=== PATIENT | female | born 1995 | race Caucasian/White ===

== ENCOUNTER 2018-06-29 11:54 | Emergency (ER) | payer MEDICAID ==
[~2018-06-29] VITALS: Ht 162.6 cm; Wt 72.8 kg
[2018-06-29 12:05] VITALS: BP 118/84
--- NOTE | 2018-06-29 12:11 | NUR ---
PT AMBULATORY TO ROOM 6 W/ C/O COUGH, CONGESTION, AND SOB X 10 DAYS. PT STATES "I HAVE A REALLY BAD COLD THAT JUST WON'T GO AWAY". PT STATES SHE CANNOT TAKE ROBITUSSIN SECONDARY TO BEING TESTED FOR ETOH. PT ALSO C/O FEVERS/CHILLS. PT DENIES GETTING FLU SHOT. PT RESTING ON GURNEY. NADN. EXPOSED TO FLU.
[2018-06-29] MEDS ORDERED: DEXAMETHASONE 4 MG TABLET ONE (12:27)
[2018-06-29] MEDS ORDERED: DEXAMETHASONE 4 MG TABLET PO ONE (12:30)
[2018-06-29 12:57] LABS: RAPID INFLUENZA A Negative (Negative); RAPID INFLUENZA B Negative (Negative)
--- NOTE | 2018-06-29 13:06 | NUR ---
PT CHART REVIEWED AND PLACED FOR RECHECK.
== END 2018-06-29 13:17 | disposition home or self-care (01) ==
LOC: ED 13:10
DX: J01.90 Acute sinusitis, unspecified (principal)
CPT/HCPCS: 71046; 87400; 99284